=== PATIENT | female | born 1965 | race American Indian/Alaskan Native ===

== ENCOUNTER 2017-04-28 10:30 | Emergency (ER) | payer MEDICARE ==
[2017-04-28 11:36] LABS: Bilirubin,Urine NEG (Negative); Blood,Urine SM (Negative); Ketones,Urine NEG (Negative); Leukocyte Esterase,Urine NEG (Negative); Mucus,Urine FEW /HPF; Nitrite,Urine NEG (Negative); Protein,Urine <15 mg/dL mg/dL (Negative); Urobilinogen,Urine < 2.0 mg/dL (<2.0)
--- NOTE | 2017-04-28 13:54 | Emergency Department Report ---
ED Abdominal Pain HPI - General Chief Complaint: Urogenital-Female Stated Complaint: ABD PAIN Time Seen by Provider: 04/28/17 13:25 Source: patient, family Mode of arrival: Ambulatory Limitations: No Limitations - History of Present Illness Initial Comments: Patient complain of pelvic pain and external vaginal itching and 3 days. Denies any vaginal discharge or bleeding. Denies any urinary burning frequency or urgency. Denies any nausea or vomiting or fever or chills. Pain is 8 out of 10 and feels crampy. No [id number] medication taken. Patient does not have a primary care physician but she states she has the [facility]. She says she is not concerned for STDs because she is not sexually active. Pain is better with rest and worse with eating. Denies any diarrhea. Last bowel movement was today and was normal. With history of arthritis, hypertension. Surgical history of tubal ligation and bilateral foot surgery. MD Complaint: abdominal pain, other (vaginal itch) Onset/Timin -: days(s) Location: suprapubic Radiation: none Migration to: no migration Severity: severe Severity scale (0 -10): 8 Quality: cramping Consistency: intermittent Improves With: rest Worsens With: eating Associated Symptoms: denies: nausea, vomiting, diarrhea, fever, chills, constipation, dysuria, hematemesis, hematochezia, melena, hematuria, anorexia, syncope Treatments Prior to Arrival: other (none) - Related Data Previous Rx's Medication Instructions Recorded Last Taken Type Fluconazole [Diflucan TAB] 200 mg PO QDAY #2 tablet 04/28/17 Unknown Rx Naproxen [Naprosyn] 500 mg PO BID PRN #10 tablet 04/28/17 Unknown Rx Allergies Allergy/AdvReac Type Severity Reaction Status Date / Time banana Allergy Hives Verified 04/28/17 10:39 ED Review of Systems ROS: Stated complaint: ABD PAIN Other details as noted in HPI Comment: All other systems reviewed and negative Constitutional: denies: chills, fever, malaise ENT: denies: throat pain Respiratory: no symptoms reported Cardiovascular: denies: chest pain, palpitations, edema, syncope Gastrointestinal: abdominal pain, diarrhea (pelvic pain). denies: nausea, vomiting, constipation Genitourinary: other (vaginal itch). denies: urgency, dysuria, frequency, hematuria, discharge, abnormal menses, dyspareunia Musculoskeletal: denies: back pain, joint swelling, arthralgia, myalgia Skin: denies: rash Neurological: denies: headache, weakness, numbness, paresthesias, confusion, abnormal gait, vertigo ED Past Medical Hx - Past Medical History Previous Medical History?: Yes Hx Hypertension: Yes Hx Arthritis: Yes - Surgical History Past Surgical History?: Yes Hx Cholecystectomy: Yes Additional Surgical History: R ear, tubal ligation, bilat foot surgery - Family History Family history: hypertension - Social History Smoking Status: Current Every Day Smoker Substance Use Type: None Other Social History: single - Medications Home Medications: Home Medications Medication Instructions Recorded Confirmed Last Taken Type Fluconazole [Diflucan TAB] 200 mg PO QDAY #2 tablet 04/28/17 Unknown Rx Naproxen [Naprosyn] 500 mg PO BID PRN #10 tablet 04/28/17 Unknown Rx ED Physical Exam - General Limitations: No Limitations General appearance: alert, in no apparent distress - Head Head exam: Present: atraumatic, normocephalic, normal inspection - Eye Eye exam: Present: normal appearance, PERRL, EOMI. Absent: periorbital swelling , periorbital tenderness Pupils: Present: normal accommodation - Neck Neck exam: Present: normal inspection, full ROM. Absent: tenderness, meningismus, lymphadenopathy - Respiratory Respiratory exam: Present: normal lung sounds bilaterally. Absent: respiratory distress, chest wall tenderness - Cardiovascular Cardiovascular Exam: Present: regular rate, normal rhythm, normal heart sounds - GI/Abdominal GI/Abdominal exam: Present: soft, normal bowel sounds. Absent: distended, tenderness, guarding, rebound, rigid - External exam: Present: erythema (labia Edwige). Absent: swelling, lesions, lacerations, ecchymosis, bleeding - Expanded Exam Expanded Female exam: Present: vulvar erythema, vulvar tenderness. Absent: vaginal laceration, tissue present in vagina, herpetic lesions, foreign body - Extremities Exam Extremities exam: Present: normal inspection, full ROM, normal capillary refill. Absent: tenderness, pedal edema, joint swelling, calf tenderness - Back Exam Back exam: Present: normal inspection, full ROM. Absent: tenderness, CVA tenderness (R), CVA tenderness (L), muscle spasm, paraspinal tenderness, vertebral tenderness, rash noted - Neurological Exam Neurological exam: Present: alert, oriented X3, normal gait, reflexes normal. Absent: motor sensory deficit - Psychiatric Psychiatric exam: Present: normal affect, normal mood - Skin Skin exam: Present: warm, dry, intact, normal color. Absent: rash ED Course Vital Signs 04/28/17 04/28/17 10:39 16:41 Temperature 98.4 F Pulse Rate 80 76 Respiratory 18 20 Rate Blood Pressure 158/96 Blood Pressure 150/105 [Right] O2 Sat by Pulse 100 97 Oximetry - Reevaluation(s) Reevaluation #1: 04/28/17 16:21 Patient received Toradol 30 mg IM for abdominal pain. She voiced relief for pain. Discussed with her that she has yeast infection and external vaginal area and will be treated with antifungal medication. ED Medical Decision Making - Lab Data Result diagrams: 04/28/17 14:16 04/28/17 14:16 Lab Results 04/28/17 04/28/17 04/28/17 Range/Units 14:16 14:16 Unknown WBC 9.7 (4.5-11.0) K/mm3 RBC 4.53 (3.65-5.03) M/mm3 Hgb 14.8 H (10.1-14.3) gm/dl Hct 43.3 H (30.3-42.9) % MCV 96 (79-97) fl MCH 33 H (28-32) pg MCHC 34 (30-34) % RDW 14.2 (13.2-15.2) % Plt Count 331 (140-440) K/mm3 Add Manual Diff Complete Total Counted 100 Seg Neuts % (Manual) 53.0 (40.0-70.0) % Band Neutrophils % 1.0 % Lymphocytes % (Manual) 42.0 H (13.4-35.0) % Reactive Lymphs % (Man) 0 % Monocytes % (Manual) 4.0 (0.0-7.3) % Eosinophils % (Manual) 0 (0.0-4.3) % Basophils % (Manual) 0 (0.0-1.8) % Metamyelocytes % 0 % Myelocytes % 0 % Promyelocytes % 0 % Blast Cells % 0 % Nucleated RBC % Not Reportable Seg Neutrophils # Man 5.1 (1.8-7.7) K/mm3 Band Neutrophils # 0.1 K/mm3 Lymphocytes # (Manual) 4.1 (1.2-5.4) K/mm3 Abs React Lymphs (Man) 0.0 K/mm3 Monocytes # (Manual) 0.4 (0.0-0.8) K/mm3 Eosinophils # (Manual) 0.0 (0.0-0.4) K/mm3 Basophils # (Manual) 0.0 (0.0-0.1) K/mm3 Metamyelocytes # 0.0 K/mm3 Myelocytes # 0.0 K/mm3 Promyelocytes # 0.0 K/mm3 Blast Cells # 0.0 K/mm3 WBC Morphology Not Reportable Hypersegmented Neuts Not Reportable Hyposegmented Neuts Not Reportable Hypogranular Neuts Not Reportable Smudge Cells Not Reportable Toxic Granulation Not Reportable Toxic Vacuolation Not Reportable Dohle Bodies Not Reportable Pelger-Huet Anomaly Not Reportable Hari Rods Not Reportable Platelet Estimate Consistent w auto Clumped Platelets Not Reportable Plt Clumps, EDTA Not Reportable Large Platelets Not Reportable Giant Platelets Not Reportable Platelet Satelliting Not Reportable Plt Morphology Comment Not Reportable RBC Morphology Normal Dimorphic RBCs Not Reportable Polychromasia Not Reportable Hypochromasia Not Reportable Poikilocytosis Not Reportable Anisocytosis Not Reportable Microcytosis Not Reportable Macrocytosis Not Reportable Spherocytes Not Reportable Pappenheimer Bodies Not Reportable Sickle Cells Not Reportable Target Cells Not Reportable Tear Drop Cells Not Reportable Ovalocytes Not Reportable Helmet Cells Not Reportable Fink-Texline Bodies Not Reportable [place] Rings Not Reportable Hemalatha Cells Not Reportable Bite Cells Not Reportable Crenated Cell Not Reportable Elliptocytes Not Reportable Acanthocytes (Spur) Not Reportable Rouleaux Not Reportable Hemoglobin C Crystals Not Reportable Schistocytes Not Reportable Malaria parasites Not Reportable Emilio Bodies Not Reportable Hem Pathologist Commnt No Sodium 141 (137-145) mmol/L Potassium 3.9 (3.6-5.0) mmol/L Chloride 104.0 (98-107) mmol/L Carbon Dioxide 18 L (22-30) mmol/L Anion Gap 23 mmol/L BUN 11 (7-17) mg/dL Creatinine 0.6 L (0.7-1.2) mg/dL Estimated GFR > 60 ml/min BUN/Creatinine Ratio 18.33 % Glucose 95 (65-100) mg/dL Calcium 9.7 (8.4-10.2) mg/dL Total Bilirubin 0.20 (0.1-1.2) mg/dL Direct Bilirubin < 0.2 (0-0.2) mg/dL AST 15 (5-40) units/L ALT 20 (7-56) units/L Alkaline Phosphatase 128 (35-129) units/L Total Protein 7.8 (6.3-8.2) g/dL Albumin 4.2 (3.9-5) g/dL Albumin/Globulin Ratio 1.2 % Urine Color Yellow (Yellow) Urine Turbidity Clear (Clear) Urine pH 6.0 (5.0-7.0) Ur Specific [place] 1.020 (1.003-1.030) Urine Protein <15 mg/dl (Negative) mg/dL Urine Glucose (UA) Neg (Negative) mg/dL Urine Ketones Neg (Negative) mg/dL Urine Blood Sm (Negative) Urine Nitrite Neg (Negative) Urine Bilirubin Neg (Negative) Urine Urobilinogen < 2.0 (<2.0) mg/dL Ur Leukocyte Esterase Neg (Negative) Urine WBC (Auto) 1.0 (0.0-6.0) /HPF Urine RBC (Auto) 1.0 (0.0-6.0) /HPF U Epithel Cells (Auto) 5.0 (0-13.0) /HPF Urine Mucus Few /HPF Urine HCG, Qual Negative (Negative) - Radiology Data Radiology results: report reviewed CT scan of the abdomen and pelvis with contrast revealed patient with no acute pathology seen. No obstructive uropathy. No pancreatitis. Patient with diverticulosis of the sigmoid colon and distal descending colon without definitive evidence of acute diverticulitis. Patient also with small 1.5 cm left adrenal gland nodule up her level and 1.5 cm lower level. Lymph nodes and mesentery normal ,bladder normal, reproductive organs mildly heterogeneous, lobular uterus to the right of midline pelvis. No peritoneal free fluid. - Medical Decision Making MDM: ED course: Patient here complaining of pelvic pain and external vaginal itching. Physical finances for vulvovaginitis. Patient had CT scan of the abdomen and pelvis without contrast because she refuses IV and it shows that she has diverticulosis without diverticulitis. CT scan also showed that patient had left adrenal gland nodule. Patient was given Toradol 30 mg IM in the emergency room which helped her pain. Patient does have access to [facility] and gastroenterology and she says she is scheduled to have colonoscopy in April. Her urinalysis negative for infection. CBC and BMP stable. I discussed lab results and CT scan result with patient. I also discussed the diagnosis and treatment plan. I encouraged her to read discharge instruction and diverticulosis and food to prevent flareup or infection of the colon. Patient was afebrile and her abdominal exam remained unchanged throughout ED stay. I encouraged patient that she will need to follow up with a primary care physician because she also had elevated blood pressure in emergency room and she says she takes medication but she didn't take today and she will take when she gets home. I encouraged her to monitor her blood pressure and I gave her referral to on-call primary care physician who is Dr. Hoyt. Patient also will call her life insurance sales agent in the morning to notify her of visits to emergency room N diagnosis of diverticulosis. Patient discharged home with prescription for naproxen and Diflucan. Diflucan . Instructed her that it is important that she follow up with primary care physician regarding nodule on adrenal gland. It was explained to her in detail and she voiced understanding Critical care attestation.: If time is entered above; I have spent that time in minutes in the direct care of this critically ill patient, excluding procedure time. ED Disposition Clinical Impression: Pelvic pain, Adrenal nodule, Vulvovaginal candidiasis, Elevated blood pressure reading in office with diagnosis of hypertension Diverticulosis of colon Qualifiers: Diverticulosis bleeding: diverticulosis without bleeding Qualified Code(s): K57.30 - Diverticulosis of large intestine without perforation or abscess without bleeding Disposition: DC-01 TO HOME OR SELFCARE Is pt being admited?: No Does the pt Need Aspirin: No Condition: Stable Instructions: Vulvovaginal Candidiasis (ED), Abdominal Pain (ED), Hypertension (ED) Additional Instructions: Follow up with your OBGYN Follow up Your [facility] in [place] Keep appointment for Colonoscopy 05/15/2017 Avoid eating food with seeds. See discharge instructions on diverticulosis Increase fluid intake See PCP referral You have a nodule on your left adrenal gland which is on top of the left kidney , please follow up with primary care as recommended for further testing Remember to take your BP meds when you get home and monitor blood pressure Prescriptions: Fluconazole [Diflucan TAB] 200 mg PO QDAY #2 tablet Naproxen [Naprosyn] 500 mg PO BID PRN #10 tablet PRN Reason: Cramp Referrals: Your, GI DOCTOR [Other] - 04/29/17 LAURENT HOYT JR, MD [Staff Physician] - 2-3 Days Forms: Work/School Release Form(ED)
[2017-04-28] MEDS ORDERED: TORADOL IV ONE (13:55)
[2017-04-28] MEDS ORDERED: TORADOL IM ONE (14:09)
[2017-04-28 14:32] LABS: Hematocrit 43.3 % (30.3-42.9); Hemoglobin 14.8 gm/dl (10.1-14.3); Mean Corpuscular HGB Conc 34 % (30-34); Mean Corpuscular Hemoglobin 33 pg (28-32); Mean Corpuscular Volume 96 fl (79-97); Platelet Count 331 K/mm3 (140-440); Red Blood Count 4.53 M/mm3 (3.65-5.03); Red Cell Distribution Width 14.2 % (13.2-15.2); White Blood Count 9.7 K/mm3 (4.5-11.0)
[2017-04-28 14:52] LABS: Alanine Aminotransferase 20 units/L (7-56); Albumin 4.2 g/dL (3.9-5); Albumin/Globulin Ratio 1.2 %; Alkaline Phosphatase 128 units/L (35-129); Anion Gap 23 mmol/L; BUN/Creatinine Ratio 18.33; Blood Urea Nitrogen 11 mg/dL (7-17); Calcium 9.7 mg/dL (8.4-10.2); Carbon Dioxide 18 mmol/L (22-30); Glucose 95 mg/dL (65-100); Potassium 3.9 mmol/L (3.6-5.0); Sodium 141 mmol/L (137-145); Total Protein 7.8 g/dL (6.3-8.2)
[2017-04-28 14:56] LABS: Bilirubin,Direct < 0.2 mg/dL (0-0.2)
--- NOTE | 2017-04-28 15:50 | Cat Scan Report ---
FINAL REPORT PROCEDURE: CT ABDOMEN PELVIS WO CON TECHNIQUE: Computerized axial tomography of the abdomen and pelvis was performed without intravenous contrast. This study is performed without intravascular contrast material and its sensitivity for abdominal and pelvic pathology, including neoplasms, inflammation, abscess, free fluid, thrombosis, arterial dissection and infarction, is reduced compared with a contrast enhanced study. HISTORY: abdominal and pelvic pain COMPARISON: No prior studies are available for comparison. FINDINGS: Visualized lower thorax: No significant abnormality. Liver: Diffuse fatty infiltration of liver Spleen: Normal size and attenuation. Gallbladder and biliary system: Metallic clips from prior cholecystectomy Pancreas: Normal. Adrenals: Small 1.5 centimeter left adrenal gland nodule upper level and 1.5 centimeter lower level Kidneys: Normal. GI tract: No oral contrast. Sigmoid spasm with diverticulosis. No definitive evidence of acute diverticulitis. Exam limited by lack of oral contrast. Normal caliber appendix. Lymph nodes and mesentery: Normal. Vasculature: Normal. Bladder: Normal. Reproductive organs: mildly heterogeneous lobular uterus to the right of midline pelvis Peritoneum: No free fluid. Musculoskeletal structures: No significant abnormality. Other: Degenerative changes lumbar spine. Limited evaluation with attenuation due to morbid obesity If symptoms and or concern persists recommend CT scan with IV and oral contrast. IMPRESSION: No acute pathology seen this time on noncontrast enhanced CT study. No obstructive uropathy. No pancreatitis evident. Prominent diverticulosis of the sigmoid colon and distal descending colon without definitive evidence of acute diverticulitis.
[2017-04-28 16:13] LABS: Basophils % (Manual) 0 % (0.0-1.8); Blastocytes % (Manual) 0 %; Diff Status Complete; Eosinophils % (Manual) 0 % (0.0-4.3); Platelet Estimate Consistent w Auto; RBC Morphology Normal
[2017-04-28 16:42] VITALS: BP 150/105
== END 2017-04-28 16:48 | disposition home or self-care (01) ==
LOC: ED 10:30
DX: B37.3 Candidiasis of vulva and vagina (principal); R10.2 Pelvic and perineal pain; K57.30 Diverticulosis of large intestine without perforation or abscess without bleeding; E27.9 Disorder of adrenal gland, unspecified; I10 Essential (primary) hypertension; M19.90 Unspecified osteoarthritis, unspecified site; F17.200 Nicotine dependence, unspecified, uncomplicated; Z91.018 Allergy to other foods
CPT/HCPCS: 36415; 74176; 80048; 80074; 81001; 81025; 85007; 85025; 96372; 99284; J1885

== ENCOUNTER 2018-06-20 07:29 | Outpatient (CLI) | payer MEDICARE ==
--- NOTE | 2018-06-20 09:03 | XRay Report ---
RIGHT HIP, 2 views: History: Right hip pain. Bone mineralization is normal. Moderate osteoarthritic changes are identified at the right hip. There is no evidence for fracture, dislocation, bone lesion or osteonecrosis. The visualized pelvis is within normal limits. Moderate degenerative changes are noted at L5-S1. IMPRESSION: Osteoarthritis.
--- NOTE | 2018-06-20 09:04 | XRay Report ---
RIGHT KNEE, 3 views: History: Pain. Normal bone mineralization. Minimal osteoarthritic changes are identified in the medial and lateral compartments. No evidence for fracture, osteochondral defect or bone lesion. The soft tissues are unremarkable. IMPRESSION: Minimal osteoarthritis.
== END 2018-06-20 07:30 | disposition home or self-care (01) ==
LOC: XRAY 07:29
PROVIDERS: ATTEND Internal Medicine
DX: M16.11 Unilateral primary osteoarthritis, right hip (principal); M17.11 Unilateral primary osteoarthritis, right knee; I10 Essential (primary) hypertension; M19.90 Unspecified osteoarthritis, unspecified site; F17.210 Nicotine dependence, cigarettes, uncomplicated; Z90.49 Acquired absence of other specified parts of digestive tract

== ENCOUNTER 2019-02-25 07:20 | Emergency (ER) | payer MEDICARE ==
[2019-02-25] MEDS ORDERED: SUBLIMAZE IM ONE (09:02)
[2019-02-25] MEDS ORDERED: ZOFRAN IM ONE (09:02)
--- NOTE | 2019-02-25 09:07 | Emergency Department Report ---
HPI - General Chief Complaint: Fall Time Seen by Provider: 02/25/19 08:58 - HPI HPI: Room 6 The patient is a 53-year-old female presenting with a chief complaint of back pain after fall. The patient states this morning she slipped and fell in bathroom and landed on her buttocks. Patient complains of pain lower back since the fall. Patient denies loss of consciousness. Patient denies other pain. Patient gives her pain a score of 10/10 Location: Low back Duration: Constant since this morning Quality: Pain Severity: 10/10 Modifying factors: [see above] Context: [see above] Mode of transportation: [not driving] ED Past Medical Hx - Past Medical History Previous Medical History?: Yes Hx Hypertension: Yes Hx Arthritis: Yes Hx Asthma: Yes - Surgical History Past Surgical History?: Yes Hx Cholecystectomy: Yes Additional Surgical History: R ear, tubal ligation, bilat foot surgery - Family History Family history: no significant - Social History Smoking Status: Current Every Day Smoker (1/3 pack per day) Substance Use Type: None - Medications Home Medications: Home Medications Medication Instructions Recorded Confirmed Last Taken Type Fluconazole [Diflucan TAB] 200 mg PO QDAY #2 tablet 04/28/17 Unknown Rx Naproxen [Naprosyn] 500 mg PO BID PRN #10 tablet 04/28/17 Unknown Rx HYDROcodone/APAP 5-325 [[place] 1 - 2 each PO Q6HR PRN #14 tablet 02/25/19 Unknown Rx 5/325] Ibuprofen [Motrin 800 MG tab] 800 mg PO Q8HR PRN #20 tablet 02/25/19 Unknown Rx ED Review of Systems ROS: Stated complaint: BACK PAIN Other details as noted in HPI Constitutional: no symptoms reported Eyes: denies: eye pain ENT: denies: throat pain Respiratory: no symptoms reported Cardiovascular: denies: chest pain Endocrine: no symptoms reported Gastrointestinal: denies: abdominal pain Genitourinary: denies: dysuria Musculoskeletal: back pain Neurological: denies: headache Physical Exam - Physical Exam Vital Signs: Vital Signs 02/25/19 07:38 Temperature 98.9 F Pulse Rate 72 Respiratory 22 Rate Blood Pressure 152/87 [Left] O2 Sat by Pulse 98 Oximetry Physical Exam: GENERAL: The patient is well-developed well-nourished female lying on stretcher not appearing to be in acute distress. [] HEENT: Normocephalic. Atraumatic. Extraocular motions are intact. Patient has moist mucous membranes. NECK: Supple. Trachea midline CHEST/LUNGS: Clear to auscultation. There is no respiratory distress noted. HEART/CARDIOVASCULAR: Regular. There is no tachycardia. There is no gallop rub or murmur. ABDOMEN: Abdomen is soft, nontender. Patient has normal bowel sounds. There is no abdominal distention. SKIN: There is no rash. There is no edema. There is no diaphoresis. NEURO: The patient is awake, alert, and oriented. The patient is cooperative. The patient has normal speech MUSCULOSKELETAL: There is tenderness to palpation or lumbar spine. There are no axial step-offs. There is no tenderness to palpation of the thoracic spine. There is no evidence of acute injury. ED Course Vital Signs 02/25/19 07:38 Temperature 98.9 F Pulse Rate 72 Respiratory 22 Rate Blood Pressure 152/87 [Left] O2 Sat by Pulse 98 Oximetry ED Medical Decision Making - Radiology Data Radiology results: report reviewed (CT lumbar spine), image reviewed (CT lumbar spine) [address] [address] Cat Scan Report Signed Patient: MALLY BURNETTE MR#: [id number] : 1965 Acct:[id number] Age/Sex: 53 / F ADM Date: 02/25/19 Loc: ED Attending Dr: Ordering Physician: DINO JEFFREY MD Date of Service: 02/25/19 Procedure(s): CT lumbar spine wo con Accession Number(s): [id number] cc: DINO JEFFREY MD CT SCAN OF THE LUMBAR SPINE: HISTORY: Pain after slip and fall. TECHNIQUE: Contiguous 1.25 mm axial images of the lumbar spine were obtained. Sagittal and coronal reformatted images. FINDINGS: There is normal alignment of the lumbar spine. The body, pedicles and posterior ligaments are intact. No evidence of fracture or subluxation is seen. Mild disc space narrowing and vacuum phenomenon are identified at L5-S1. Moderate facet arthropathy is identified at L4-5 and L5-S1. Although intraspinal contents is limited on noncontrast CT, and no large epidural hematoma is identified IMPRESSION: Lumbar spondylosis. No acute process is noted. Transcribed By: TTR Dictated By: ALEJANDRA RASHEED JR, MD Electronically Authenticated By: ALEJANDRA RASHEED JR, MD Signed Date/Time: 02/25/19 1026 DD/ 1024 TD/TT: 02/25/19 1026 - Differential Diagnosis compression fracture, lumbar strain, lumbar contusion Critical care attestation.: If time is entered above; I have spent that time in minutes in the direct care of this critically ill patient, excluding procedure time. ED Disposition Clinical Impression: Lumbar strain Disposition: - TO HOME OR SELFCARE Is pt being admited?: No Does the pt Need Aspirin: No Condition: Stable Instructions: Muscle Strain (ED) Additional Instructions: Return to the emergency department immediately should you develop worsening symptoms, fever, inability to tolerate food or liquid or any other concerns. Prescriptions: Ibuprofen [Motrin 800 MG tab] 800 mg PO Q8HR PRN #20 tablet PRN Reason: Pain, Moderate (4-6) HYDROcodone/APAP 5-325 [[place] 5/325] 1 - 2 each PO Q6HR PRN #14 tablet PRN Reason: Pain Referrals: PRIMARY CARE, [Primary Care Provider] - 3-5 Days GEM BURTON MD [Staff Physician] - 3-5 Days (Dr. Burton is an orthopedic surgeon. Please follow-up with him for further evaluation) Time of Disposition: 11:14
--- NOTE | 2019-02-25 10:30 | Cat Scan Report ---
CT SCAN OF THE LUMBAR SPINE: HISTORY: Pain after slip and fall. TECHNIQUE: Contiguous 1.25 mm axial images of the lumbar spine were obtained. Sagittal and coronal reformatted images. FINDINGS: There is normal alignment of the lumbar spine. The body, pedicles and posterior ligaments are intact. No evidence of fracture or subluxation is seen. Mild disc space narrowing and vacuum phenomenon are identified at L5-S1. Moderate facet arthropathy is identified at L4-5 and L5-S1. Although intraspinal contents is limited on noncontrast CT, and no large epidural hematoma is identified IMPRESSION: Lumbar spondylosis. No acute process is noted.
[2019-02-25 12:16] VITALS: BP 154/83
== END 2019-02-25 13:31 | disposition home or self-care (01) ==
LOC: ED 07:20
DX: S39.012A Strain of muscle, fascia and tendon of lower back, initial encounter (principal); I10 Essential (primary) hypertension; M19.90 Unspecified osteoarthritis, unspecified site; J45.909 Unspecified asthma, uncomplicated; F17.200 Nicotine dependence, unspecified, uncomplicated; W18.30XA Fall on same level, unspecified, initial encounter; Y93.89 Activity, other specified; Y92.89 Other specified places as the place of occurrence of the external cause; Y99.8 Other external cause status
CPT/HCPCS: 72131; 96372; 99284; J2405; J3010

== ENCOUNTER 2019-05-25 10:58 | Emergency (ER) | payer MEDICARE ==
[2019-05-25 11:27] VITALS: BP 193/89
[2019-05-25] MEDS ORDERED: DECADRON IM ONE (11:31)
[2019-05-25] MEDS ORDERED: TORADOL IM ONE (11:31)
--- NOTE | 2019-05-25 11:33 | Emergency Department Report ---
ED Back Pain/Injury HPI - General Chief Complaint: Back Pain/Injury Stated Complaint: BACK PAIN Time Seen by Provider: 05/25/19 11:26 Source: patient, EMS Limitations: No Limitations - History of Present Illness Initial Comments: PT COMES TO ER WITH A/C BP HER ULTRAM AND OTC MEDS ARE NOT WORKING SHE HAS GOTTEN INJECTION 1 M AGO AND NEEDS ANOTHER NEURO INTACT NO NEW FALL MD Complaint: back pain - Related Data Previous Rx's Medication Instructions Recorded Last Taken Type Fluconazole [Diflucan TAB] 200 mg PO QDAY #2 tablet 04/28/17 Unknown Rx Naproxen [Naprosyn] 500 mg PO BID PRN #10 tablet 04/28/17 Unknown Rx HYDROcodone/APAP 5-325 [[place] 1 - 2 each PO Q6HR PRN #14 tablet 02/25/19 Unknown Rx 5/325] Ibuprofen [Motrin 800 MG tab] 800 mg PO Q8HR PRN #20 tablet 02/25/19 Unknown Rx Allergies Allergy/AdvReac Type Severity Reaction Status Date / Time banana Allergy Hives Verified 02/25/19 07:30 ED Review of Systems ROS: Stated complaint: BACK PAIN Other details as noted in HPI Comment: All other systems reviewed and negative ED Past Medical Hx - Past Medical History Medical history: asthma, hypertension Family history: no significant family history ED Back Pain Physical Exam - Exam General: Vital signs noted. No distress. Alert and acting appropriately. Back/Abdomen: No Abdominal Tenderness, No Perithoracic Tenderness, No Perilumbar Tenderness, No Sacroiliac Tenderness, No Flank Tenderness, No Straight Leg Raise Pain Neuro: Yes Normal Sensation, Yes Normal DTR's, Yes Normal Gait, No Motor Weakness ED Course Vital Signs 05/25/19 11:26 Temperature 98.6 F Pulse Rate 70 Respiratory 22 Rate Blood Pressure 193/89 O2 Sat by Pulse 98 Oximetry ED Medical Decision Making - Medical Decision Making SEEN IN JANUARY FOR SAME SEES PCP AND PAIN MD HER MEDS NOT WORKING DISCUSSED ER AND PAIN RX ROLE GIVEN IM INJECTION AND DC HOME NEURO INTACT VSS NO INCONTINENCE OR OTHER S/S CAUDA EQUINA EDUCATED ON HER WEIGHT A ROLE IN HER BACK PAIN Vital Signs 05/25/19 05/25/19 05/25/19 11:26 11:48 11:49 Temperature 98.6 F Pulse Rate 70 Respiratory 22 18 18 Rate Blood Pressure 193/89 O2 Sat by Pulse 98 Oximetry - Differential Diagnosis a/c pain Critical care attestation.: If time is entered above; I have spent that time in minutes in the direct care of this critically ill patient, excluding procedure time. ED Disposition Clinical Impression: Chronic back pain Disposition: DC-01 TO HOME OR SELFCARE Is pt being admited?: No Does the pt Need Aspirin: No Condition: Stable Instructions: Chronic Back Pain (ED) Additional Instructions: FOLLOW UP WITH PAIN MD AND PCP [facility] CONTINUE HOME MEDS Referrals: GILLES WOODWARD MD [Primary Care Provider] - 3-5 Days Time of Disposition: 11:46
== END 2019-05-25 11:49 | disposition home or self-care (01) ==
LOC: ED 10:58
DX: G89.29 Other chronic pain (principal); M54.9 Dorsalgia, unspecified; J45.909 Unspecified asthma, uncomplicated; I10 Essential (primary) hypertension
CPT/HCPCS: 96372; 99283; J1100; J1885